=== PATIENT | female | born 1945 | race Caucasian/White ===

== ENCOUNTER 2017-04-11 08:05 | Emergency (ER) | payer MEDICARE ==
[2017-04-11 08:43] VITALS: BP 138/78
--- NOTE | 2017-04-11 09:02 | ED ---
Throat Pain/Nasal Congestion - HPI Summary HPI Summary: 71 yr old with sinus pressure, post nasal drip, and also complaining of coughing. The patient has been coughing for about three weeks. She states others in the family are coughing the same amount of time with a son who has been coughing a lot. No other complaints. - History of Current Complaint Chief Complaint: UCRespiratory Time Seen by Provider: 04/11/17 08:49 - Allergies/Home Medications Allergies/Adverse Reactions: Allergies Allergy/AdvReac Type Severity Reaction Status Date / Time Codeine Allergy Respiratory Verified 04/11/17 08:43 Depression Influenza Vaccines Allergy Swelling, Verified 04/11/17 08:43 Rash, and Shortness of Breath Morphine Allergy Respiratory Verified 04/11/17 08:43 Depression Penicillins Allergy Hives Verified 04/11/17 08:43 PMH/Surg Hx/FS Hx/Imm Hx Endocrine/Hematology History: Reports: Hx Diabetes Cardiovascular History: Reports: Hx Hypertension Musculoskeletal History: Denies: Hx Osteoporosis - Cancer History Cancer Type, Location and Year: rectal ca 1974 - Surgical History Surgery Procedure, Year, and Place: rectal ey=3435 squmous cell HYSTERECTOMY= 1974 nasafundoplication-2005 thoricotomy-2005 Infectious Disease History: No Infectious Disease History: Denies: Traveled Outside the [place] in Last 30 Days - Social History Alcohol Use: None Substance Use Type: Reports: None Smoking Status (MU): Never Smoked Tobacco Review of Systems Constitutional: Negative Positive: Nasal Discharge Positive: Cough All Other Systems Reviewed And Are Negative: Yes Physical Exam Triage Information Reviewed: Yes Vital Signs On Initial Exam: Initial Vitals Temp Pulse Resp BP Pulse Ox 98.1 F 76 16 138/78 100 04/11/17 08:26 04/11/17 08:26 04/11/17 08:26 04/11/17 08:26 04/11/17 08:26 Vital Signs Reviewed: Yes Appearance: Positive: Well-Appearing, No Pain Distress Head/Face: Positive: Normal Head/Face Inspection Eyes: Positive: EOMI ENT: Positive: Pharynx normal, TMs normal, Sinus tenderness Neck: Positive: Nontender Respiratory/Lung Sounds: Positive: Clear to Auscultation, Breath Sounds Present Cardiovascular: Positive: RRR. Negative: Murmur Abdomen Description: Positive: Nontender Musculoskeletal: Positive: Strength/ROM Intact Neurological: Positive: Sensory/Motor Intact, Alert, Oriented to Person Place, Time, CN Intact II-III Psychiatric: Positive: Normal - Reji Coma Scale Best Eye Response: 4 - Spontaneous Best Motor Response: 6 - Obeys Commands Best Verbal Response: 5 - Oriented Diagnostics - Vital Signs Vital Signs Temp Pulse Resp BP Pulse Ox 04/11/17 08:26 98.1 F 76 16 138/78 100 - Laboratory Lab Statement: Any lab studies that have been ordered have been reviewed, and results considered in the medical decision making process. - Radiology chest xray Xray Interpretation: No Acute Changes Radiology Interpretation Completed By: Radiologist EENT Course/Dx - Course Course Of Treatment: xray reviewed and negative for acute findings. Due to sinus pressure and drainage will cover her with biaxin for ten days for sinusitis. - Diagnoses Provider Diagnoses: Sinusitis, Cough Discharge - Discharge Plan Condition: Good Disposition: HOME Prescriptions: Clarithromycin TAB* [Biaxin 500 MG TAB*] 500 mg PO BID #20 tab Patient Education Materials: Sinusitis (ED), Acute Bronchitis (ED), Hypertension (ED) Referrals: No Primary Care Phys,NOPCP [Primary Care Provider] - [facility] [place] [facility] REFERRAL [Outside]
--- NOTE | 2017-04-11 09:26 | RAD ---
INDICATION: Chest pain since yesterday. Cough for 3 weeks. Shortness of breath. COMPARISON: March 18, 2009 TECHNIQUE: Dual energy PA and routine lateral views of the chest were obtained. REPORT: Mild elevation of the LEFT hemidiaphragm is chronic. Mild prominence of interstitial markings. Accounting for chronic LEFT diaphragmatic elevation there is no suggestion of pleural effusion. Negative for pneumothorax. Mild cardiomegaly. Unremarkable central pulmonary vasculature and mediastinal contours. Gallbladder fossa and LEFT epigastric surgical clips. IMPRESSION: Mild cardiomegaly. No acute cardiopulmonary process evident.
== END 2017-04-11 09:39 | disposition home or self-care (01) ==
LOC: UCCORT 08:05
DX: J32.9 Chronic sinusitis, unspecified (principal); R05 Cough; I51.7 Cardiomegaly; E11.9 Type 2 diabetes mellitus without complications; I10 Essential (primary) hypertension; Z90.710 Acquired absence of both cervix and uterus; Z85.048 Personal history of other malignant neoplasm of rectum, rectosigmoid junction, and anus; Z88.5 Allergy status to narcotic agent; Z88.0 Allergy status to penicillin; Z88.7 Allergy status to serum and vaccine
CPT/HCPCS: 71046; 99212; G0463

== ENCOUNTER 2018-01-23 10:39 | Emergency (ER) | payer MEDICARE ==
[2018-01-23 10:59] VITALS: BP 149/87
--- NOTE | 2018-01-23 11:23 | ED ---
Upper Extremity Pain - HPI Summary HPI Summary: 72 yr old female with two weeks of coughing, and productive of yellow sputum. She has had pain in the left shoulder with movement for 10 days, and worse with any overhead type work. She has some pain in back of neck with forward flexion of neck as well. She does lift a lot of heavy things. Denies SOB, CP. - History of Current Complaint Chief Complaint: UCGeneralIllness Stated Complaint: LEFT SHOULDER ARM/CHEST PAIN Time Seen by Provider: 01/23/18 11:09 - Allergies/Home Medications Allergies/Adverse Reactions: Allergies Allergy/AdvReac Type Severity Reaction Status Date / Time codeine Allergy Severe respiratory Verified 01/23/18 11:05 depression Influenza Virus Vaccines Allergy Severe Arm turned Verified 01/23/18 11:05 black influenza virus vaccine, Allergy Intermediate Hives Verified 01/23/18 11:05 specific morphine Allergy Intermediate respiratory Verified 01/23/18 11:05 depression Home Medications: Home Medications Amlodipine Besylate/Benazepril [Lotrel 5-20 mg] 1 cap PO 01/23/18 [History] Cyclobenzaprine TAB* [Flexeril 10 MG TAB*] 10 mg PO BID PRN 01/23/18 [History Confirmed 01/23/18] Insulin LISPRO* [HumaLOG*] 0 units SUBCUT DIRECTED 01/23/18 [History Confirmed 01/23/18] PMH/Surg Hx/FS Hx/Imm Hx Endocrine/Hematology History: Reports: Hx Diabetes Cardiovascular History: Reports: Hx Hypertension Musculoskeletal History: Denies: Hx Osteoporosis - Cancer History Cancer Type, Location and Year: rectal ca 1974 Hx Chemotherapy: No Hx Radiation Therapy: No - Surgical History Surgery Procedure, Year, and Place: rectal zv=[id number] squmous cell HYSTERECTOMY= 1974 nasafundoplication-2005 thoricotomy-2005 Infectious Disease History: No Infectious Disease History: Reports: Hx Shingles Denies: Traveled Outside the [place] in Last 30 Days - Social History Alcohol Use: None Substance Use Type: Reports: None Smoking Status (MU): Never Smoked Tobacco Review of Systems Constitutional: Negative Positive: Cough Positive: Other - shoulder pain with ROM. All Other Systems Reviewed And Are Negative: Yes Physical Exam Triage Information Reviewed: Yes Vital Signs On Initial Exam: Initial Vitals Temp Pulse Resp BP Pulse Ox 97.2 F 86 18 149/87 98 01/23/18 10:54 01/23/18 10:54 01/23/18 10:54 01/23/18 10:54 01/23/18 10:54 Vital Signs Reviewed: Yes Appearance: Positive: Well-Appearing, No Pain Distress Skin: Positive: Warm, Skin Color Reflects Adequate Perfusion Head/Face: Positive: Normal Head/Face Inspection Eyes: Positive: EOMI ENT: Positive: Normal ENT inspection, Pharynx normal, TMs normal Neck: Positive: Other: - some pain in back of neck with forward flexion on ROM. Respiratory/Lung Sounds: Positive: Clear to Auscultation, Breath Sounds Present Cardiovascular: Positive: RRR. Negative: Murmur Abdomen Description: Positive: Nontender Musculoskeletal: Positive: Other - tender over the left shoulder with ROM. Past 90 degress in either forward or abdcution. She can get to 90 degress of abduction. 120 degress forward flexion with left shoulder. No redness, no STS , no increased warmth. Neurological: Positive: Sensory/Motor Intact, Alert, Oriented to Person Place, Time, CN Intact II-III Psychiatric: Positive: Normal - Reji Coma Scale Best Eye Response: 4 - Spontaneous Best Motor Response: 6 - Obeys Commands Best Verbal Response: 5 - Oriented Coma Scale Total: 15 Diagnostics - Vital Signs Vital Signs Temp Pulse Resp BP Pulse Ox 01/23/18 10:54 97.2 F 86 18 149/87 98 - Laboratory Lab Statement: Any lab studies that have been ordered have been reviewed, and results considered in the medical decision making process. - Radiology cervical spine, shoulder, chest Radiology Interpretation Completed By: Radiologist - Lung nodule, stable compare to prior, left base pleural changes, djd c spine, shoulder neg except for DJD. - EKG 01/23/18 Cardiac Rate: NL EKG Rhythm: Sinus Rhythm ST Segment: Normal Ectopy: None Course/Dx - Course Course Of Treatment: 72 yr old with shoulder pain. Pain is clearly reproducible. She has also had a cough. She is advised to follow up with her PMD for the stable lung nodule and pleural changes, and she is referred to ortho for the left shoulder and nec,. - Diagnoses Provider Diagnoses: Degenerative joint disease of cervical spine, Rotator cuff arthropathy of left shoulder, Pleural condition, unspecified, Cough, Lung nodule Discharge - Sign-Out/Discharge Documenting (check all that apply): Patient Departure All imaging exams completed and their final reports reviewed: Yes - Discharge Plan Condition: Good Disposition: HOME Prescriptions: Ibuprofen TAB* [Motrin TAB* 600 MG] 600 mg PO Q8H PRN #14 tab PRN Reason: Pain Patient Education Materials: Pulmonary Nodules (ED), Pleural Effusion (ED), Rotator Cuff Tendinitis (ED), Cervical Strain (ED), Acute Neck Pain (ED), Hypertension (ED) Referrals: Haile Conklin DO [Primary Care Provider] - Sekou Scott MD [Medical Doctor] - Additional Instructions: 1) Follow up with orthopedics for your shoulder and cervical spine. 2) Follow up with your primary doctor in the next week for blood pressure recheck, and for the lung nodule and pleural changes in the left side of your chest. - Billing Disposition and Condition Condition: GOOD Disposition: Home
--- NOTE | 2018-01-23 12:19 | RAD ---
Indication: Chest pain. 2 views of the chest including dual energy PA views demonstrate no mediastinal shift. Heart is of normal size and configuration. The lung zhang demonstrate suggestion of a left perihilar density which was present on April 11, 2017 is not significantly changed. Blunting of left costophrenic angle is noted. IMPRESSION: Chronic pleural changes in the left lung base. A small nodule lateral to the left hilum is again identified but has been present as far back as December 27, 2006. The remainder of the lung zhang are clear.
--- NOTE | 2018-01-23 12:21 | RAD ---
Indication: Neck pain. 5 views of the cervical spine reviewed. There is disc space narrowing at C4-C5, C5-C6 and C6-C7. Spinal canal appears to be intact. The intervertebral foramen appear patent. IMPRESSION: Degenerative disc disease at C4-C5, C5-C6 and C6-C7. Straightening of the normal lordosis.
--- NOTE | 2018-01-23 12:22 | RAD ---
INDICATION: Left shoulder pain. TECHNIQUE: 4 views of the left shoulder were obtained. FINDINGS: The bones are in normal alignment. No fracture is seen. There is mild osteoarthritic change in the acromioclavicular and glenohumeral joint spaces. IMPRESSION: MILD OSTEOARTHRITIC CHANGE.
== END 2018-01-23 12:38 | disposition home or self-care (01) ==
LOC: UCCORT 10:39
DX: R05 Cough (principal); J94.9 Pleural condition, unspecified; R91.1 Solitary pulmonary nodule; M19.012 Primary osteoarthritis, left shoulder; M47.812 Spondylosis without myelopathy or radiculopathy, cervical region; E11.9 Type 2 diabetes mellitus without complications; I10 Essential (primary) hypertension; Z85.048 Personal history of other malignant neoplasm of rectum, rectosigmoid junction, and anus; Z79.4 Long term (current) use of insulin; Z88.5 Allergy status to narcotic agent; Z88.7 Allergy status to serum and vaccine
CPT/HCPCS: 71046; 72050; 93005; 99212; G0463

== ENCOUNTER 2018-04-04 09:56 | Emergency (ER) | payer MEDICARE ==
[2018-04-04 10:12] VITALS: BP 156/84
--- NOTE | 2018-04-04 11:17 | UC ---
Respiratory Complaint HPI - HPI Summary HPI Summary: sinus pain and pressure x 2 weeks + nasal congestion , cough , pnd, no fever, + chills, pain with deep breathing , c/o wheezing and sob - History of Current Complaint Chief Complaint: UCRespiratory Stated Complaint: COUGH,SINUSES,RIB/BACK PAIN Time Seen by Provider: 04/04/18 10:37 Hx Obtained From: Patient Onset/Duration: Gradual Onset, Lasting Weeks - 2, Still Present Timing: Constant Severity Initially: Moderate Severity Currently: Moderate Pain Intensity: 0 Aggravating Factors: Exertion, Deep Breaths Alleviating Factors: Nothing Associated Signs And Symptoms: Positive: Dyspnea, Chills, Pleuritic Chest Pain, Wheezing, URI, Nasal Congestion, Sinus Discomfort. Negative: Fever, Hemoptysis , Dizziness, Calf Pain, Calf Swelling, Hoarseness - Allergies/Home Medications Allergies/Adverse Reactions: Allergies Allergy/AdvReac Type Severity Reaction Status Date / Time codeine Allergy Severe respiratory Verified 04/04/18 10:06 depression Influenza Virus Vaccines Allergy Severe Arm turned Verified 04/04/18 10:06 black influenza virus vaccine, Allergy Intermediate Hives Verified 04/04/18 10:06 specific morphine Allergy Intermediate respiratory Verified 04/04/18 10:06 depression Home Medications: Home Medications Azithromyxin BETH (NF) [Z-Beth (Zithromax) 250 mg tabs #6] 2 tab PO .TODAY, THEN 1 DAILY 04/04/18 [History Confirmed 04/04/18] PMH/Surg Hx/FS Hx/Imm Hx - Additional Past Medical History Additional PMH: rectal cancer Endocrine History: Diabetes Cardiovascular History: Hypertension - Surgical History Surgical History: Yes Surgery Procedure, Year, and Place: rectal yn=0029 squmous cell HYSTERECTOMY= 1974 nasafundoplication-2005 thoricotomy-2005 - Family History Known Family History: Positive: Hypertension - Social History Alcohol Use: None Substance Use Type: None Smoking Status (MU): Never Smoked Tobacco - Immunization History Most Recent Influenza Vaccination: 2016 Review of Systems All Other Systems Reviewed And Are Negative: Yes Constitutional: Positive: Chills, Fatigue Skin: Positive: Negative Eyes: Positive: Negative ENT: Positive: Sore Throat, Nasal Discharge, Sinus Congestion, Sinus Pain/ Tenderness Respiratory: Positive: Cough Cardiovascular: Positive: Negative Is Patient Immunocompromised?: No Physical Exam Triage Information Reviewed: Yes Appearance: Well-Appearing, No Pain Distress, Well-Nourished Vital Signs: Initial Vital Signs Temp 97.8 F 04/04/18 10:08 Pulse 89 04/04/18 10:08 Resp 18 04/04/18 10:08 BP 156/84 04/04/18 10:08 Pulse Ox 98 04/04/18 10:08 Vital Signs Reviewed: Yes Eye Exam: Normal Eyes: Positive: Conjunctiva Clear ENT: Positive: Normal ENT inspection, Hearing grossly normal, Pharyngeal erythema, Nasal congestion, Nasal drainage, TMs normal, Sinus tenderness. Negative: TM bulging, TM dull, Tonsillar swelling, Tonsillar exudate, Trismus Neck: Positive: Supple, Nontender, No Lymphadenopathy Respiratory: Positive: Chest non-tender, Lungs clear, Normal breath sounds Cardiovascular: Positive: RRR, No Murmur, Pulses Normal UC Diagnostic Evaluation - Laboratory O2 Sat by Pulse Oximetry: 98 Diagnostic Studies Comment: chest xray : REPORT: Elevated lung volumes and both diffuse slight prominence of the interstitial. markings and patchy rarefaction of the mid to upper lung zone interstitial markings. Chronic mild elevation of the LEFT hemidiaphragm. No alveolar consolidation, focal. pulmonary lesion, pleural effusion, or pneumothorax. The heart, pulmonary vasculature, and. mediastinal contours are unremarkable. Gallbladder fossa and epigastric surgical clips. IMPRESSION: #. Stigmata of potential obstructive lung disease. No acute pulmonary or cardiac process. evident. Respiratory Course/Dx - Differential Dx/Diagnosis Provider Diagnosis: Sinusitis Discharge - Sign-Out/Discharge Documenting (check all that apply): Patient Departure All imaging exams completed and their final reports reviewed: Yes - Discharge Plan Condition: Stable Disposition: HOME Prescriptions: DOXYcycline CAP(*) [DOXYcycline 100MG CAP(*)] 100 mg PO BID #20 cap Patient Education Materials: Sinusitis (ED) Referrals: Arelis Thibodeaux PA [Primary Care Provider] - 7 Days - Billing Disposition and Condition Condition: STABLE Disposition: Home
== END 2018-04-04 11:42 | disposition home or self-care (01) ==
LOC: UCCORT 09:56
DX: J32.9 Chronic sinusitis, unspecified (principal); Z88.5 Allergy status to narcotic agent; Z88.7 Allergy status to serum and vaccine; Z85.048 Personal history of other malignant neoplasm of rectum, rectosigmoid junction, and anus; E11.9 Type 2 diabetes mellitus without complications; I10 Essential (primary) hypertension
CPT/HCPCS: 71046; 99212; G0463